=== PATIENT | female | born 2000 | race Caucasian/White ===

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

== ENCOUNTER → 2022-01-19 08:03 | Outpatient (BNVA) | payer OTHER, SELFPAY | PROVIDERS: Family Provider Nurse Practitioner Family; PCP Nurse Practitioner Family; Visit Provider Nurse Practitioner Women's Health | DX: N92.6 Irregular menstruation, unspecified (principal); E28.2 Polycystic ovarian syndrome; E03.9 Hypothyroidism, unspecified | CPT/HCPCS: 81025 ==

== ENCOUNTER → 2022-01-23 14:44 | Outpatient (BNVA) | payer OTHER, SELFPAY | PROVIDERS: Family Provider Nurse Practitioner Family; PCP Nurse Practitioner Family; Visit Provider Obstetrics & Gynecology | DX: O20.9 Hemorrhage in early pregnancy, unspecified (principal) | CPT/HCPCS: 84702 ==

== ENCOUNTER → 2022-01-24 13:57 | Outpatient (BNVA) | payer OTHER, SELFPAY | PROVIDERS: Family Provider Nurse Practitioner Family; PCP Nurse Practitioner Family; Visit Provider Nurse Practitioner Women's Health | DX: O20.0 Threatened abortion (principal) | CPT/HCPCS: 85025; 86850; 86900; 87491; 87591; 87661 ==

== ENCOUNTER 2022-01-25 09:58 | Outpatient (CLI) | payer OTHER, SELFPAY ==
[2022-01-25 10:57] LABS: HCG Quantitative 11.54 mIU/mL
== END 2022-01-25 09:59 | disposition home or self-care (01) ==
LOC: LAB 10:01
PROVIDERS: PCP Nurse Practitioner Family; Visit Provider Nurse Practitioner Women's Health
DX: O20.0 Threatened abortion (principal)
CPT/HCPCS: 84702

== ENCOUNTER → 2022-02-02 15:18 | Outpatient (BNVA) | payer OTHER, SELFPAY | PROVIDERS: PCP Nurse Practitioner Family; Visit Provider Obstetrics & Gynecology | DX: O03.4 Incomplete spontaneous abortion without complication (principal); Z3A.00 Weeks of gestation of pregnancy not specified | CPT/HCPCS: 84702 ==

== ENCOUNTER → 2022-02-21 10:38 | Outpatient (BNVA) | payer OTHER, SELFPAY | PROVIDERS: PCP Nurse Practitioner Family; Visit Provider Nurse Practitioner Women's Health | DX: E03.9 Hypothyroidism, unspecified (principal) | CPT/HCPCS: 84443 ==

== ENCOUNTER → 2022-06-07 13:50 | Outpatient (BNVA) | payer OTHER, SELFPAY | PROVIDERS: PCP Nurse Practitioner Family; Visit Provider Nurse Practitioner Women's Health | DX: N92.6 Irregular menstruation, unspecified (principal) | CPT/HCPCS: 81025 ==

== ENCOUNTER → 2023-01-17 13:51 | Outpatient (BNVA) | payer OTHER, SELFPAY | PROVIDERS: PCP Nurse Practitioner Family; Visit Provider Nurse Practitioner Family | DX: E03.9 Hypothyroidism, unspecified (principal); E28.2 Polycystic ovarian syndrome | CPT/HCPCS: 80061; 83001; 83002; 83036; 84146; 84403; 84439; 84443; 84481 ==

== ENCOUNTER 2023-02-16 12:07 | Outpatient (CLI) | payer OTHER, SELFPAY ==
--- NOTE | 2023-02-16 12:15 | US_ITS ---
WS: [id number] Pelvic ultrasound, 02/16/2023 Clinical Data: N92.6 - Irregular menstruation, unspecified Comparison: None. Findings: The uterus measures 7.9 cm x 3.9 cm x 3.8 cm. The endometrium is 0.9 cm. No intrauterine or abnormal intrauterine mass is seen. There is a small cervical cyst. The right ovary measures 3.57 cm x 1.84 cm x 2.35 cm with multiple follicular cysts. The left ovary measures 1.44 x 2.20 x 2.95 cm with multiple small follicular cysts.. US/US pelvic complete* [id number] Impression: 1. Small cyst in the cervix. 2. Multiple small follicular cysts of both ovaries.
== END 2023-02-16 12:08 | disposition home or self-care (01) ==
LOC: RAD 12:09
PROVIDERS: PCP Family Medicine; Visit Provider Nurse Practitioner Family
DX: N92.6 Irregular menstruation, unspecified (principal); N88.8 Other specified noninflammatory disorders of cervix uteri; N83.02 Follicular cyst of left ovary; N83.01 Follicular cyst of right ovary
CPT/HCPCS: 76856; 80061; 83001; 83002; 83036; 84146; 84403; 84439; 84443; 84481

== ENCOUNTER 2023-02-26 09:08 | Day surgery (SDC) | payer OTHER, SELFPAY ==
[2023-02-23 10:55] VITALS: BMI 44.4
[2023-02-26] VITALS (11 sets, daily range): BP systolic 90–136; BP diastolic 53–91; PULSE 67–90; RESP 14–16; TEMP 36.1–36.9; O2SAT 92–98
[2023-02-26 09:44] LABS: OR HCG Qualitative Urine Negative (Negative)
[2023-02-26] MEDS: scopolamine 1.5 Patch 1 PATCH TRANSDERMA (10:08)
[2023-02-26] MEDS: sodium chloride 0.9% 1,000 ML 30 ML IV (10:08)
--- NOTE | 2023-02-26 10:28 | ANES.PREANE2 ---
Pre-Anesthetic Assessment Height/Weight: Height 1.5 m Weight 99.79 kg Temp Pulse Resp BP Pulse Ox O2 Del Method 98.5 F 90 16 136/91 98 Room Air 02/26/23 09:34 02/26/23 09:34 02/26/23 09:34 02/26/23 09:34 02/26/23 09:34 02/26/23 09:36 Operation Date: 02/26/23 10:40 Proposed Procedures p Pilonidal Cystectomy [id number],L05.91(Not Applicable) - Yung Griffin DO Familial anesthetic complications: PONV - scopolamine patch placed Was Beta Trey taken within 24 hours: N/A Was Clonidine taken within 24 hours: N/A Last intake: Intake Last Liquid Date 02/25/23 Last Liquid Time 19:30 Last Solid Date 02/25/23 Last Solid Time 19:30 Social No alcohol and No tobacco Exam alert, oriented x 3, clear to auscultation bilaterally and regular rate & rhythm Airway Mallampati: Class III Dentition: full Metabolic Morbid Obesity and Thyroid Disease PCOS Anesthetic Plan ASA status: 3 Anesthesia: General Risk of > 500 ml blood loss (7ml/kg in children): No Medications/Allergies Home Medications Medication Instructions Recorded Confirmed Last Taken Type levothyroxine 50 mcg capsule 50 mcg PO DAILY #90 caps 12/30/21 02/23/23 02/25/23 Rx prenat.vits,eduardo,cyl-jqbo-lipuq 1 tab PO DAILY 06/07/22 02/23/23 02/25/23 History Allergies Allergy/AdvReac Type Severity Reaction Status Date / Time No Known Allergies Allergy Verified 02/23/23 10:34 Current Medications Generic Name Dose Route Start Last Admin Trade Name Freq PRN Reason Stop Dose Admin Sodium Chloride 1,000 mls @ 30 mls/hr 02/26/23 09:15 02/26/23 10:08 Sodium Chloride 0.9% IV 02/27/23 09:14 30 mls/hr .Q24H KEISHA Administration PFSH Anesthesia Medical History Hip dysplasia Hypothyroidism No pertinent past medical history neghx: dm, htn, dvt/pe PCP: Tata Dee PCOS (polycystic ovarian syndrome) Surgical History History of hip surgery 18 months and age 17-- born with hip dysplasia. History of tonsillectomy Family History Grandmother Hypertension paternal Denies family history of Colon cancer Ovarian cancer Prostate cancer Diabetes Heart disease Hyperlipidemia Breast cancer Bleeding disorder Uterine cancer Thyroid disease Stroke Social History Smoking and tobacco status: never smoked Alcohol intake: never Substance/Drug Use: never Data Anesthesia Cardiac Studies: No Data to Display
--- NOTE | 2023-02-26 12:38 | W.PM.OPSUD ---
Surgery/Procedure H&P Update DATE OF PROCEDURE: February 26, 2023 DATE H&P PERFORMED: 02/06/23 H&P UPDATE INFORMATION: I have reviewed H&P completed within last 30 days, I have examined patient prior to procedure and No changes to prior documentation PLANNED PROCEDURE: Operation Date: 02/26/23 10:40 Proposed Procedures p Pilonidal Cystectomy [id number],L05.91(Not Applicable) - Yung Griffin DO
[2023-02-26] MEDS: ceFAZolin 2,000 MG in sodium chloride 0.9% (plus) 50 ML 100 MG IV (12:43)
--- NOTE | 2023-02-26 12:55 | P.OP_ITS ---
Operative Report Date of procedure: February 26, 2023 Pre-op diagnosis: Pilonidal cyst Post-op diagnosis: same Procedure done: Excision of pilonidal cyst Implants: Artis Specimens removed/disposition: Pilonidal cyst Surgeon: Dr. Yung Griffin, DO Anesthesia: General Estimated blood loss (mL): 5 Complications: None apparent Brief History: This very pleasant 22-year-old female with a pilonidal cyst. Excision is indicated. The risk and benefits were explained and documented. Procedure: The area was inspected prepped and draped in the usual sterile fashion.? A timeout was performed.? All present were in agreement.? 2% lidocaine with epinephrine was used to anesthetize the area around the pilonidal cyst.? A 10 cm elliptical excision was performed down to the sacrum.? The anal sphincter was avoided.? Specimen was removed en bloc and sent to pathology.? Bovie cautery was used for hemostasis.? 0 Vicryl was then used in interrupted fashion to approximate the fascia.? Artis was placed down into the wound.? 2-0 Vicryl was then used in interrupted fashion to approximate the dermis.? 3-0 nylon was used to close the skin in a vertical mattress interrupted fashion.? Hemostasis was noted.? Bacitracin and sterile dressing was applied.? Patient tolerated the proc edure well.
[2023-02-26] MEDS: lidocaine-epi 2% 20 mL INJ INJECTION (13:11)
[2023-02-26] MEDS: neomycin-poly-bacitracin oint 28 gm 1 APPLIC TOPICAL (13:45)
[2023-02-26] MEDS: ondansetron 2 mg/ML SDV 2 mL 4 MG IVP ×2 (14:35→14:41)
--- NOTE | 2023-02-26 15:37 | ANE.PACU2 ---
Inpatient post-anesthesia follow up: Airway intact: Yes Vital signs: Temperature 97.2 F Pulse Rate 68 Respiratory Rate 14 Blood Pressure 95/77 Pulse Oximetry 94 Oxygen Delivery Me thod Room Air Oxygen Flow Rate 6 Fraction of Inspir ed Oxygen Hydration adequate: Yes Nausea and vomiting: No Pain level: 1 Mental status: Baseline
[2023-02-26] MEDS: oxyCODONE-APAP 5-325 mg Tablet 1 TAB PO (15:38)
== END 2023-02-26 16:05 | disposition home or self-care (01) ==
PROVIDERS: Anesthesiology; PCP Family Medicine; Visit Provider Surgery
PROC: (CPT 11770; principal; 2023-02-26 10:40)
DX: L05.91 Pilonidal cyst without abscess (principal); E66.01 Morbid (severe) obesity due to excess calories; Z68.41 Body mass index [BMI] 40.0-44.9, adult; E03.9 Hypothyroidism, unspecified
CPT/HCPCS: 11770; 81025; 84703; 88304; J0690; J1100; J1885; J2250; J2405; J2704; J2710; J3010; J3490; J7030

== ENCOUNTER → 2024-03-12 10:06 | Outpatient (BNVA) | payer OTHER, SELFPAY | PROVIDERS: PCP Nurse Practitioner Family; Visit Provider Nurse Practitioner Family | DX: E03.9 Hypothyroidism, unspecified (principal); L65.9 Nonscarring hair loss, unspecified | CPT/HCPCS: 82306; 82607; 82728; 83550; 84439; 84443; 85025 ==

== ENCOUNTER 2024-06-25 12:30 | Outpatient (CLI) | payer OTHER, SELFPAY ==
[2024-06-25 13:08] LABS: Iron 43 ug/dL (37-145)
[2024-06-27 11:40] LABS: Quantiferon Mitogen 9.73 IU/mL; Quantiferon Nil 0.01 IU/mL; Quantiferon TB Gold NEGATIVE (NEGATIVE)
== END 2024-06-25 12:31 | disposition home or self-care (01) ==
LOC: LAB 12:31
PROVIDERS: PCP Nurse Practitioner Family; Visit Provider Nurse Practitioner Family
DX: E55.9 Vitamin D deficiency, unspecified (principal); E61.1 Iron deficiency; Z13.9 Encounter for screening, unspecified; Z11.1 Encounter for screening for respiratory tuberculosis
CPT/HCPCS: 36415; 82652; 83540; 86480; 86787

== ENCOUNTER → 2024-12-08 14:55 | Outpatient (BNVA) | payer SELFPAY | PROVIDERS: PCP Nurse Practitioner Family; Visit Provider Emergency Medicine | DX: M25.521 Pain in right elbow (principal) | CPT/HCPCS: 73080 ==

== ENCOUNTER → 2025-01-07 09:06 | Outpatient (BNVA) | payer OTHER, SELFPAY | PROVIDERS: PCP Nurse Practitioner Family; Visit Provider Nurse Practitioner Family | DX: I10 Essential (primary) hypertension (principal); E03.9 Hypothyroidism, unspecified; E61.1 Iron deficiency; E78.5 Hyperlipidemia, unspecified; D50.9 Iron deficiency anemia, unspecified; E55.9 Vitamin D deficiency, unspecified | CPT/HCPCS: 80053; 80061; 82306; 82607; 83550; 84439; 84443; 85025 ==

== ENCOUNTER → 2025-07-21 13:21 | Outpatient (BNVA) | payer OTHER, SELFPAY | PROVIDERS: PCP Nurse Practitioner Family; Visit Provider Nurse Practitioner Family | DX: E03.9 Hypothyroidism, unspecified (principal); E28.2 Polycystic ovarian syndrome; E55.9 Vitamin D deficiency, unspecified | CPT/HCPCS: 82652; 83036; 84443 ==

== ENCOUNTER → 2025-09-09 09:41 | Outpatient (BNVA) | payer OTHER, SELFPAY | PROVIDERS: PCP Nurse Practitioner Family; Visit Provider Nurse Practitioner Family | DX: E03.9 Hypothyroidism, unspecified (principal) | CPT/HCPCS: 84443 ==